=== PATIENT | female | born 1985 | race African-American/Black ===

== ENCOUNTER 2021-03-31 06:08 | Observation (INO) | payer OTHER ==
[~2021-03-31] VITALS: Ht 170.2 cm; Wt 110.7 kg
[2021-03-31 06:09] VITALS: BP 179/116
[2021-03-31] MEDS ORDERED: ADIPEX-P37.5 MG PO (06:15)
[2021-03-31] MEDS ORDERED: PERCOCET 10-321 EAC1 PO (06:16)
[2021-03-31 06:44] LABS: ABSOLUTE BASOPHILS 0.4 thou/uL (0.0-0.2); ABSOLUTE EOSINOPHILS 0.1 thou/uL (0.0-0.7); ABSOLUTE LYMPHOCYTES 4.1 thou/uL (0.8-5.3); ABSOLUTE NEUTROPHILS 9.9 thou/uL (1.6-8.1); BASOPHILS 2.3 %; EOSINOPHILS 0.7 %; HEMATOCRIT 30.6 % (37.0-47.0); HEMOGLOBIN 9.7 gm/dL (12.0-15.0); LYMPHOCYTES 26.7 %; MCH 25.6 pg (26.0-34.0); MCHC 31.9 g/dL (28.0-37.0); MCV 80.5 fL (80.0-100.0); MONOCYTES 6.3 %; MPV 6.7 fl. (7.2-11.1); NUCLEATED RBCS 0 /100WBC; PLATELET COUNT* 550 thou/uL (150-400); WBC 15.5 thou/uL (4.0-11.0)
[2021-03-31 06:52] LABS: ANION GAP 14 mmol/L (7-16); BUN 10 mg/dL (7-18); CALCIUM 9.4 mg/dL (8.5-10.1); CHLORIDE 100 mmol/L (98-107); CO2 23 mmol/L (21-32); GLUCOSE 147 mg/dL (70-99); POTASSIUM 4.4 mmol/L (3.5-5.1); SODIUM 137 mmol/L (136-145)
[2021-03-31 06:57] LABS: ALBUMIN 3.5 g/dL (3.4-5.0); ALKALINE PHOSPHATASE 95 U/L (46-116); SGOT 12 U/L (15-37); SGPT 20 U/L (30-65); TOTAL BILIRUBIN < 0.1 mg/dL (<0.1-1.0)
[2021-03-31 07:39] LABS: URINE BILIRUBIN NEGATIVE (Negative); URINE BLOOD 1+ (Negative); URINE CLARITY CLEAR; URINE COLOR YELLOW; URINE GLUCOSE-RANDOM NEGATIVE (Negative); URINE KETONES NEGATIVE (Negative); URINE LEUKOCYTES-REFLEX NEGATIVE (Negative); URINE NITRITE-REFLEX NEGATIVE (Negative); URINE PROTEIN 1+ (Negative); URINE SPECIFIC GRAVITY >= 1.030 (1.005-1.030); URINE UROBILINOGEN 0.2 E.U./dl (0.2-1.0)
[2021-03-31 07:47] LABS: AMP/METHAMP Negative (Negative); BARBITURATES Negative (Negative); BENZODIAZEPINES Negative (Negative); COCAINE Negative (Negative); METHADONE Negative (Negative); OPIATES Negative (Negative); PCP Negative (Negative); THC Negative (Negative)
[2021-03-31 07:48] LABS: BACTERIA-REFLEX 1-9 Few /HPF (None Seen); MUCUS 4-6 Moderate strn/LPF (None Seen); SQUAMOUS 4-10 Moderate /LPF (0-3); URINE RBC 3-10 Few /HPF (0-2); URINE WBC-REFLEX 0-5 Rare /HPF (0-5)
[2021-03-31 07:49] LABS: CRYSTALS None Seen /LPF (None Seen); HYALINE CASTS 0-3 Few /LPF (None Seen)
--- NOTE | 2021-03-31 12:23 | EKG ---
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
--- NOTE | 2021-03-31 12:51 | NUR ---
PT PASSED SWALLOW SCREEN WITH HOSPITALIST WAS IN ROOM. PT ABLE TO DRINK WATER WITHOUT DIFFICUTLY AND WITHOUT COUGHING AND CHOKING.
[2021-03-31 13:59] VITALS: BP 128/83
[2021-03-31 14:29] VITALS: BP 128/83
[2021-03-31 15:30] VITALS: BP 146/90
[2021-03-31 20:00] VITALS: BP 132/76
[2021-03-31 23:52] VITALS: BP 143/89
[2021-04-01 04:00] VITALS: BP 136/76
--- NOTE | 2021-04-01 06:25 | NUR ---
Alert and oriented x 4. She is up with minimal assist to the bathroom. She needs to hold onto the wall etc. Vitals are stable,O2 sat on roomair 97-100%. She had a shower. New IV started, 22G in L hand. She is received pain meds x 3 this shift.
[2021-04-01 08:38] VITALS: BP 119/59
[2021-04-01 11:25] VITALS: BP 134/72
--- NOTE | 2021-04-01 12:26 | NUR ---
CM ASSESSMENT: PT A&O, INDEPENDENT WITH ADL'S, ACTIVE AND WORKS OUTSIDE THE HOME. PT USES 0 DME. PT HAS 0 HX OF HH OR SNF. NO CM D/C PLANNING NEEDS ANTICIPATED. CM WILL REMAIN AVAILABLE TO ASSIST AND FOLLOW NEEDED.
[2021-04-01 15:08] VITALS: BP 134/72
--- NOTE | 2021-04-01 16:19 | NUR ---
ASSUMED PT CARE AT 0730. PT IS PLEASANTLY A&OX4. ASSESSMENT COMPLETED AND PT VOICES NO CONCERNS OTHER THAN HER NORMAL GENERALZED PAIN.PRN MED GIVEN AND EFFECTIVE. SEIZURE PRECAUTIONS IN PLACE AND SAFETY MEASURES IN PLACE. PT VERBALIZES UNDERSTANDING TO PROMOTE SAFETY. NO SEIZURE ACTIVITY AND BP 119/59. NEW ORDERS TO DISCHARGE PT TO HOME. DISCHARGE ORDERS RREVIEWED WITH PT WHOM VERBALIZES UNDERSTANDING. PT ASSISTED BY NURSING STAFF VIA WC TO EXIT WITH SISTER AT THIS TIME VIA CARE. HEART MONITOR WAS REMOVED AND IV DC'D. ALL BELONGINGS WITH PT.
--- NOTE | 2021-04-04 22:26 | EEG ---
[address] [address] EEG STUDY REPORT Name: PAT CORNELIUS Room: [address] M.RCecile#: [id number] Admission: 03/31/21 Attend Phys: Raj Bonner Discharge: 04/01/21 Date of : 81 Report #: [id number] THIS REPORT FOR: cc: Monet Perry MD, Veronica A. MD Khosla, Parveen K. MD ~ DOC #: [id number] Faustino Augustin MD DATE OF SERVICE: 03/31/2021 This patient is being evaluated for seizure. EEG was done by placing the electrode by standard 10-20 system of electrode placement. Both referential and sequential montages were used for recording. Background activity in this patient's EEG is about 10 Hz and 30 microvolt. This is a symmetrical activity. Photic stimulation is unremarkable. This patient went to sleep and that is associated with bilateral slowing and vertex sharp waves. Throughout the record, no active epileptiform activity was noticed. IMPRESSION: This patient's EEG is within normal limits. Thank you very much for this referral. Faustino Augustin MD PK/ANI <ELECTRONICALLY SIGNED> By: Faustino Augustin MD 04/04/21 2226 [id number] Augustin MD /joel
--- NOTE | 2021-04-04 22:26 | CON ---
[address] [address] CONSULTATION Name: PAT CORNELIUS Room: [address] Kristina Reilly#: [id number] Admission: 03/31/21 Attend Phys: Raj Bonner Discharge: 04/01/21 Date of : 81 Report #: [id number] THIS REPORT FOR: cc: Monet Perry MD, Veronica A. MD Khosla, Parveen K. MD ~ DOC #: [id number] Faustino Augustin MD DATE OF CONSULTATION: 03/31/2021 HISTORY OF PRESENT ILLNESS: This is a 35-year-old female patient who was admitted with seizure. I talked to the emergency room physician and talked to the patient. There is no firsthand witness for me to interview, but she described generalized shaking with postictal period. She thinks she is still confused, but becoming better. She thinks her tongue is sore. She is hypertensive and her blood pressure was high. REVIEW OF SYSTEMS: A 14-point review of system was carried out. The patient started weight reduction pill recently. She knew that one of the side effects was seizure as I understand. She feels sore in generalized fashion. She is also positive for back pain. Back pain is going on for a long time. She says she has some disk bulging there and she takes Percocet either 4 Percocet a day or 6 Percocet a day. Does not look like she has cut back a those medication recently. Though she feels very anxious now, but she says usually she does not feel very anxious. She does not take any medication for anxiety. This was a relevant 14-point review of systems. PAST MEDICAL HISTORY: Positive for back pain for which she takes narcotics on a regular basis. FAMILY HISTORY: Unknown, but does not look like there is any congenital epilepsy. SOCIAL HISTORY: She smokes, but she says she does not drink alcohol or abuse any drugs. PHYSICAL EXAMINATION: NEUROLOGIC: Indicates she is alert. She is responsive. It took a long time to tell me that it is March and she knew it was , but could not tell me the date. Her speech looks intact. Memory is not back to the baseline. Cranial nerve examination II-XII does not appear to be showing any definite abnormality. Neuromuscular examination is pretty unusual. She moves all 4 extremities. She says she has trouble moving her lower extremities, but she can move them. Her position sense is intact. There is no meningeal sign. CARDIORESPIRATORY: [place] [address] CONSULTATION Name: PAT CORNELIUS Room: [address] Kristina Reilly#: [id number] Admission: 03/31/21 Attend Phys: Raj Bonner Discharge: 04/01/21 Date of : 81 Report #: [id number] EXTREMITIES: There is no edema. Pulses are palpable. GENERAL: She is morbidly obese person. HEENT: Her hearing and vision looks adequate. GENITOURINARY: She had a tubal ligation and her test is negative. IMPRESSION: 1. New onset seizure. This patient needs to discontinue the stimulant for the weight reduction. 2. She needs to address with the family practice about her pain medication. 3. I think we should proceed with MRI of the brain with and without contrast. I discussed the indication, potential complication and alternatives in great detail with the patient. She wants to proceed with that. RECOMMENDATIONS: 1. Await this workup. 2. If workup is unremarkable and she comes back to her baseline by tomorrow, then I do not think any further workup is necessary. If any anticonvulsant needs to be started, I will prefer gabapentin, which will also help her pain. Her narcotic situation needs to be readdressed. She needs to take seizure precautions and she cannot drive for 6 months. Thank you very much for this referral. We will look up the testing once is done. MD RUSTY Carroll/JUNIE/PAUL <ELECTRONICALLY SIGNED> By: Faustino Augustin MD 04/04/21 2226 1250 sandra Augustin MD /joel
== END 2021-04-01 17:00 | disposition home or self-care (01) ==
LOC: M.ERS 06:08 → M.TBA-ER 08:53 → M.2W 08:53
PROVIDERS: Personal Emergency Response Attendant; ADMIT Internal Medicine; ATTEND Internal Medicine
DX: G40.909 Epilepsy, unspecified, not intractable, without status epilepticus (principal); Z20.822 Contact with and (suspected) exposure to COVID-19; M54.9 Dorsalgia, unspecified; G89.29 Other chronic pain; E66.9 Obesity, unspecified; Z68.38 Body mass index [BMI] 38.0-38.9, adult; Z79.899 Other long term (current) drug therapy

== ENCOUNTER 2021-12-20 20:23 | Emergency (ER) | payer OTHER ==
[~2021-12-20] VITALS: Ht 170.2 cm; Wt 97.5 kg
[~2021-12-20 20:23] MED LIST: ADIPEX-P37.5 MG PO; PERCOCET 10-321 EAC1 PO
[2021-12-20] MEDS ORDERED: CEPHALEXIN500 MG PO (21:15)
[2021-12-20 21:28] VITALS: BP 140/62
== END 2021-12-20 21:28 | disposition home or self-care (01) ==
LOC: M.ERS 20:23
DX: S91.114A Laceration without foreign body of right lesser toe(s) without damage to nail, initial encounter (principal); I10 Essential (primary) hypertension; Z90.49 Acquired absence of other specified parts of digestive tract; W22.8XXA Striking against or struck by other objects, initial encounter; Y93.89 Activity, other specified; Y92.89 Other specified places as the place of occurrence of the external cause; Y99.8 Other external cause status